=== PATIENT | female | born 1940 | race Two or more races ===

== ENCOUNTER 2018-11-28 14:14 | Emergency (ER) | payer OTHER, MEDICAID ==
[~2018-11-28] VITALS: Ht 154.9 cm; Wt 72.6 kg
[~2018-11-28 14:14] MED LIST: CLOP75TA28; LISI10TA6; LOVA20TA4
[2018-11-28 14:23] VITALS: BP 139/79
[2018-11-28] MEDS ORDERED: methylPREDNISolone SOD SUCC 125 MG/2 ML VL IM ONE (15:45)
== END 2018-11-28 16:03 | disposition home or self-care (01) ==
LOC: EDBD 14:14 → ER 14:14
DX: L23.5 Allergic contact dermatitis due to other chemical products (principal); T49.0X5A Adverse effect of local antifungal, anti-infective and anti-inflammatory drugs, initial encounter; E78.5 Hyperlipidemia, unspecified; I10 Essential (primary) hypertension; Z79.899 Other long term (current) drug therapy; Y92.89 Other specified places as the place of occurrence of the external cause
CPT/HCPCS: 96372; 99283; J2930

== ENCOUNTER 2020-03-19 14:11 | Inpatient (IN) | payer OTHER, MEDICAID ==
[~2020-03-19] VITALS: Ht 157.5 cm; Wt 68.3 kg
[~2020-03-19 14:11] MED LIST changes: +LISI-648; -LISI10TA6
[2020-03-19] MEDS ORDERED: SODIUM CHLORIDE 0.9% 500 ML IVB ONE (14:45)
[2020-03-19 15:26] LABS: Hematocrit 37.8 % (36.0-46.0); Hemoglobin 12.5 g/dL (12.2-16.2); Mean Corpuscular Hemoglobin 30.8 pg (28.0-32.0); Mean Corpuscular Volume 93.3 fL (80.0-100.0); Platelet Count (auto) 176 10^3/uL (140-450); Red Blood Cells 4.05 10^6/uL (4.0-5.20); Red Cell Distribution Width 13.5 % (11.8-14.3); White Blood Cell 8.9 10^3/uL (4.4-10.8)
[2020-03-19] MEDS ORDERED: metroNIDAZOLE 500MG/100ML 100 ML IV ONE (15:30)
[2020-03-19 15:38] LABS: Basophils % (manual) 0 (0.0-2.0); Blast Cells 0; Eosinophils % (manual) 0 (0-7); Myelocytes % 0; Promyelocytes % 0; Reactive Lymphocytes 0
[2020-03-19 15:41] LABS: Albumin 3.9 g/dL (3.4-5.0); BUN/Creatinine Ratio 10.2; Calcium 8.8 mg/dL (8.5-10.1); Potassium 3.5 mmol/L (3.5-5.1)
[2020-03-19 15:44] LABS: Bilirubin, Total 0.6 mg/dL (0.2-1.0); Total Protein 8.2 g/dL (6.4-8.2)
[2020-03-19 17:40] LABS: Band Neutrophils % (manual) 20; Monocytes % (manual) 28 (0-12)
[2020-03-19 17:41] LABS: Lymphocytes % (manual) 12 (10.0-50.0); Metamyelocytes % 1
[2020-03-19] MEDS ORDERED: MORPHINE SULF INJ 2 MG/ML SYRINGE 1ML IV PRN (17:45)
[2020-03-19] MEDS ORDERED: NITROGLYCERIN 0.4 MG SL TAB SL PRN (17:45)
[2020-03-19] MEDS ORDERED: LABETALOL HCL 5 MG/ML 4ML SYRINGE IV PRN (17:45)
[2020-03-19] MEDS: SODIUM CHLORIDE 0.9% 1,000 ML IV SCH (18:41)
[2020-03-19] MEDS: cefTRIAXone 1GM/50ML D5W 50 ML IV SCH (18:41)
[2020-03-19 19:21] LABS: Cholesterol 171 mg/dL (< 200); Triglycerides 177 mg/dL (< 150)
[2020-03-19 19:22] LABS: HDL Cholesterol 37 mg/dL (40-59); LDL Cholesterol 109 mg/dL (< 100)
[2020-03-19] MEDS ORDERED: metroNIDAZOLE 500MG/100ML 100 ML IV SCH (22:00)
[2020-03-19] MEDS: metroNIDAZOLE 500MG/100ML 100 ML IV SCH (22:26)
[2020-03-19 22:46] VITALS: BP 126/75
[2020-03-19] MEDS ORDERED: ASPI-543 PO (23:11)
[2020-03-20] MEDS: SODIUM CHLORIDE 0.9% 1,000 ML IV SCH ×2 (03:45→09:31)
[2020-03-20 05:00] VITALS: BP 105/59
[2020-03-20 05:08] LABS: Urine Bacteria FEW /hpf (None Seen); Urine Blood Negative /uL (Negative); Urine Mucus FEW (None Seen); Urine WBC 2 /hpf (0 - 5)
[2020-03-20] MEDS: metroNIDAZOLE 500MG/100ML 100 ML IV SCH ×3 (05:36→21:35)
[2020-03-20 06:51] LABS: Hematocrit 36.1 % (36.0-46.0); Hemoglobin 11.8 g/dL (12.2-16.2); Mean Corpuscular Hemoglobin 30.2 pg (28.0-32.0); Mean Corpuscular Hgb Conc. 32.7 g/dL (32.0-36.0); Mean Corpuscular Volume 92.4 fL (80.0-100.0); Platelet Count (auto) 167 10^3/uL (140-450); Red Blood Cells 3.91 10^6/uL (4.0-5.20); Red Cell Distribution Width 13.3 % (11.8-14.3); White Blood Cell 7.5 10^3/uL (4.4-10.8)
[2020-03-20 07:01] LABS: Basophils % (manual) 0 (0.0-2.0); Blast Cells 0; Myelocytes % 0; Promyelocytes % 0; Reactive Lymphocytes 0
[2020-03-20 07:17] LABS: Potassium 3.3 mmol/L (3.5-5.1)
[2020-03-20 07:28] LABS: BUN/Creatinine Ratio 8.4
[2020-03-20 07:29] LABS: Calcium 8.3 mg/dL (8.5-10.1)
[2020-03-20] MEDS: HYDROcodone-ACET 7.5/325MG TAB PO PRN ×2 (07:57→16:22)
[2020-03-20 08:45] VITALS: BP 108/61
[2020-03-20 09:22] LABS: Band Neutrophils % (manual) 18; Eosinophils % (manual) 8 (0-7); Lymphocytes % (manual) 20 (10.0-50.0); Metamyelocytes % 1; Monocytes % (manual) 18 (0-12)
[2020-03-20] MEDS: PANTOPRAZOLE 40 MG/10 ML VIAL INJ IV SCH (09:30)
[2020-03-20] MEDS: cefTRIAXone 1GM/50ML D5W 50 ML IV SCH (09:30)
[2020-03-20] MEDS ORDERED: ONDANSETRON HCL 4 MG/2 ML VIAL IV PRN (11:15)
[2020-03-20] MEDS: MORPHINE SULF INJ 2 MG/ML SYRINGE 1ML IV PRN (11:19)
[2020-03-20] MEDS ORDERED: POTASSIUM CHL 20MEQ/100ML 100 ML IV ONE (12:30)
[2020-03-20 13:00] VITALS: BP 97/48
[2020-03-20] MEDS: D5W/SOD CHLO 0.9% 1,000 ML IV SCH (14:46)
[2020-03-20 16:43] VITALS: BP 98/53
[2020-03-20 22:00] VITALS: BP 111/56
[2020-03-21] MEDS: D5W/SOD CHLO 0.9% 1,000 ML IV SCH ×2 (01:50→09:04)
[2020-03-21 05:51] VITALS: BP 102/62
[2020-03-21] MEDS: metroNIDAZOLE 500MG/100ML 100 ML IV SCH (06:11)
[2020-03-21 09:00] VITALS: BP 91/49
[2020-03-21] MEDS: PANTOPRAZOLE 40 MG/10 ML VIAL INJ IV SCH (09:03)
[2020-03-21] MEDS: cefTRIAXone 1GM/50ML D5W 50 ML IV SCH (09:03)
[2020-03-21 13:00] VITALS: BP 101/57
[2020-03-21] MEDS: metroNIDAZOLE 500 MG TAB PO SCH ×3 (14:00→22:03)
[2020-03-21 22:00] VITALS: BP 112/67
[2020-03-21] MEDS: HYDROcodone-ACET 7.5/325MG TAB PO PRN (22:04)
[2020-03-22 05:00] VITALS: BP 112/65
[2020-03-22] MEDS: D5W/SOD CHLO 0.9% 1,000 ML IV SCH (05:43)
[2020-03-22] MEDS: metroNIDAZOLE 500 MG TAB PO SCH ×3 (06:49→22:33)
[2020-03-22 08:00] VITALS: BP 104/56
[2020-03-22 08:37] VITALS: BP 104/56
[2020-03-22] MEDS: PANTOPRAZOLE 40 MG/10 ML VIAL INJ IV SCH (09:06)
[2020-03-22] MEDS: cefTRIAXone 1GM/50ML D5W 50 ML IV SCH (09:06)
[2020-03-22 12:42] VITALS: BP 105/59
[2020-03-22] MEDS ORDERED: metroNIDAZOLE 500 MG TAB PO SCH (15:45)
[2020-03-22] MEDS ORDERED: VANCOMYCIN HCL 125MG/5ML ORAL SOL PO ONE (15:45)
[2020-03-22 16:30] VITALS: BP 132/72
[2020-03-22] MEDS: VANCOMYCIN HCL 125MG/5ML ORAL SOL PO SCH ×2 (18:44→22:33)
[2020-03-22 22:00] VITALS: BP 121/65
[2020-03-23 05:40] VITALS: BP 118/78
[2020-03-23] MEDS: VANCOMYCIN HCL 125MG/5ML ORAL SOL PO SCH ×4 (06:30→22:38)
[2020-03-23] MEDS: metroNIDAZOLE 500 MG TAB PO SCH ×3 (06:30→22:38)
[2020-03-23 08:00] VITALS: BP 120/72
[2020-03-23 08:43] VITALS: BP 120/72
[2020-03-23] MEDS: cefTRIAXone 1GM/50ML D5W 50 ML IV SCH (09:22)
[2020-03-23] MEDS: PANTOPRAZOLE 40 MG/10 ML VIAL INJ IV SCH (09:24)
[2020-03-23 12:43] VITALS: BP 107/57
[2020-03-23 16:42] VITALS: BP 113/66
[2020-03-23 22:00] VITALS: BP 105/71
[2020-03-24] VITALS (7 sets, daily range): BP systolic 94–139; BP diastolic 55–79
[2020-03-24 05:02] LABS: Basophils # (auto) 0.1 10 ^3/uL (0-0.2); Basophils % (auto) 1.3 % (0.0-2.0); Eosinophils # (auto) 0.4 10 ^3/uL (0-0.8); Eosinophils % (auto) 3.6 % (0.0-7.0); Hematocrit 39.6 % (36.0-46.0); Hemoglobin 13.1 g/dL (12.2-16.2); Lymphocytes # (auto) 2.3 10 ^3/uL (0.4-5.4); Lymphocytes % (auto) 21.3 % (10.0-50.0); Mean Corpuscular Hemoglobin 30.3 pg (28.0-32.0); Mean Corpuscular Hgb Conc. 33.1 g/dL (32.0-36.0); Mean Corpuscular Volume 91.6 fL (80.0-100.0); Monocytes # (auto) 1.4 10 ^3/uL (0-1.3); Monocytes % (auto) 13.2 % (0.0-12.0); Neutrophils # (auto) 6.5 10 ^3/uL (1.6-8.6); Neutrophils % (auto) 60.6 % (37.0-80.0); Nucleated Red Blood Cells % 0.2 %; Platelet Count (auto) 248 10^3/uL (140-450); Red Blood Cells 4.33 10^6/uL (4.0-5.20); Red Cell Distribution Width 13.5 % (11.8-14.3); White Blood Cell 10.7 10^3/uL (4.4-10.8)
[2020-03-24 05:23] LABS: Albumin 3.6 g/dL (3.4-5.0); BUN/Creatinine Ratio 12.2; Calcium 9.5 mg/dL (8.5-10.1); Potassium 3.4 mmol/L (3.5-5.1)
[2020-03-24 05:26] LABS: Bilirubin, Total 0.3 mg/dL (0.2-1.0); Total Protein 7.6 g/dL (6.4-8.2)
[2020-03-24] MEDS: VANCOMYCIN HCL 125MG/5ML ORAL SOL PO SCH ×4 (06:44→21:35)
[2020-03-24] MEDS: metroNIDAZOLE 500 MG TAB PO SCH ×3 (06:44→21:35)
[2020-03-24] MEDS: cefTRIAXone 1GM/50ML D5W 50 ML IV SCH (08:51)
[2020-03-24] MEDS: MORPHINE SULF INJ 2 MG/ML SYRINGE 1ML IV PRN (08:51)
[2020-03-24] MEDS: PANTOPRAZOLE 40 MG/10 ML VIAL INJ IV SCH (08:53)
[2020-03-24] MEDS ORDERED: POTASSIUM EFFERVESENT TAB 25 MEQ PO ONE (10:15)
[2020-03-24] MEDS ORDERED: TROLAMINE SALICYLATE 10% TOP CREAM TOP PRN (19:30)
[2020-03-25 05:00] VITALS: BP 139/92
[2020-03-25] MEDS: metroNIDAZOLE 500 MG TAB PO SCH ×2 (06:12→14:32)
[2020-03-25] MEDS: VANCOMYCIN HCL 125MG/5ML ORAL SOL PO SCH ×2 (06:12→12:41)
[2020-03-25 07:08] LABS: Basophils # (auto) 0.1 10 ^3/uL (0-0.2); Eosinophils # (auto) 0.5 10 ^3/uL (0-0.8); Eosinophils % (auto) 3.9 % (0.0-7.0); Hematocrit 40.3 % (36.0-46.0); Hemoglobin 13.2 g/dL (12.2-16.2); Lymphocytes # (auto) 2.3 10 ^3/uL (0.4-5.4); Lymphocytes % (auto) 19.1 % (10.0-50.0); Mean Corpuscular Hemoglobin 30.5 pg (28.0-32.0); Mean Corpuscular Hgb Conc. 32.8 g/dL (32.0-36.0); Mean Corpuscular Volume 92.7 fL (80.0-100.0); Monocytes # (auto) 1.2 10 ^3/uL (0-1.3); Monocytes % (auto) 10.3 % (0.0-12.0); Neutrophils # (auto) 7.7 10 ^3/uL (1.6-8.6); Neutrophils % (auto) 65.7 % (37.0-80.0); Nucleated Red Blood Cells % 0.1 %; Platelet Count (auto) 260 10^3/uL (140-450); Red Blood Cells 4.35 10^6/uL (4.0-5.20); Red Cell Distribution Width 13.7 % (11.8-14.3); White Blood Cell 11.8 10^3/uL (4.4-10.8)
[2020-03-25 07:15] LABS: Potassium 3.7 mmol/L (3.5-5.1)
[2020-03-25 07:21] LABS: Calcium 9.6 mg/dL (8.5-10.1)
[2020-03-25 09:00] VITALS: BP 124/77
[2020-03-25] MEDS: PANTOPRAZOLE 40 MG/10 ML VIAL INJ IV SCH (09:12)
[2020-03-25] MEDS: cefTRIAXone 1GM/50ML D5W 50 ML IV SCH (09:12)
[2020-03-25 13:00] VITALS: BP 111/66
[2020-03-25] MEDS ORDERED: MET500T PO (13:24)
[2020-03-25] MEDS ORDERED: VANC125PO PO (13:24)
[2020-03-25 15:45] VITALS: BP 111/66
== END 2020-03-25 16:20 | disposition home or self-care (01) | DRG 371 ==
LOC: ER 14:11 → TELE 14:12 → TELE-CENTR 22:10
PROVIDERS: ADMIT Nurse Practitioner Acute Care; ATTEND Internal Medicine Nephrology
DX: A04.72 Enterocolitis due to Clostridium difficile, not specified as recurrent (principal); N17.0 Acute kidney failure with tubular necrosis; K57.32 Diverticulitis of large intestine without perforation or abscess without bleeding; R19.7 Diarrhea, unspecified; N18.30 Chronic kidney disease, stage 3 unspecified; E87.6 Hypokalemia; K76.0 Fatty (change of) liver, not elsewhere classified; E78.5 Hyperlipidemia, unspecified; I12.9 Hypertensive chronic kidney disease with stage 1 through stage 4 chronic kidney disease, or unspecified chronic kidney disease
CPT/HCPCS: 36415; 74176; 80048; 80053; 80061; 81001; 82378; 83690; 85007; 85025; 85027; 85048; 87493; 93005; 96365; C9113; G0378; J0696; J2405; J3480; J3490; J7042

== ENCOUNTER 2023-07-07 11:51 | Emergency (ER) | payer OTHER, MEDICAID ==
[~2023-07-07] VITALS: Ht 167.6 cm; Wt 69.4 kg
[~2023-07-07 11:51] MED LIST changes: +ASPI-543 PO; -LISI-648; +MET500T PO; +VANC125PO PO
[2023-07-07] MEDS: KETOROLAC TROMETH 30 MG/ML 1ML VIAL IM ONE (13:09)
[2023-07-07 14:30] VITALS: BP 119/92; PULSE 76; RESP 16; TEMP 97.4; O2SAT 96
== END 2023-07-07 14:31 | disposition home or self-care (01) ==
LOC: ER 11:51
DX: M19.90 Unspecified osteoarthritis, unspecified site (principal); M54.6 Pain in thoracic spine; E78.5 Hyperlipidemia, unspecified; Z79.899 Other long term (current) drug therapy
CPT/HCPCS: 73030; 96372; 99283; J1885